=== PATIENT | female | born 1995 | race Two or more races ===

== ENCOUNTER 2023-06-09 08:05 | Observation (INO) | payer BC, OTHER ==
[~2023-06-09] VITALS: Ht 162.6 cm; Wt 99.8 kg
== END 2023-06-09 10:10 | disposition home or self-care (01) ==
LOC: LDRP 08:05
PROVIDERS: ADMIT Obstetrics & Gynecology; ATTEND Obstetrics & Gynecology
DX: O48.0 Post-term pregnancy (principal); Z3A.40 40 weeks gestation of pregnancy
CPT/HCPCS: 59025; 76818; 81002; G0378

== ENCOUNTER 2023-06-11 10:06 | Observation (INO) | payer BC ==
[~2023-06-11] VITALS: Ht 162.6 cm; Wt 99.8 kg
== END 2023-06-11 12:26 | disposition home or self-care (01) ==
LOC: UNDOADMOB 10:06 → LDRP 10:06 → UNDODISOB 12:26
PROVIDERS: ADMIT Obstetrics & Gynecology; ATTEND Obstetrics & Gynecology
DX: O48.0 Post-term pregnancy (principal); Z3A.40 40 weeks gestation of pregnancy
CPT/HCPCS: 59025; 76818; 81002; 94760; G0378

== ENCOUNTER 2023-06-13 09:59 | Observation (INO) | payer BC ==
[2023-06-13] MEDS ORDERED: PREN1TAB71 OR (10:52)
== END 2023-06-13 11:32 | disposition home or self-care (01) ==
LOC: LDRP 09:59 → UNDOADMOB 09:59 → LDRP 10:04 → UNDODISOB 11:32
PROVIDERS: ADMIT Obstetrics & Gynecology; ATTEND Obstetrics & Gynecology
DX: O48.0 Post-term pregnancy (principal); O62.9 Abnormality of forces of labor, unspecified; Z3A.40 40 weeks gestation of pregnancy
CPT/HCPCS: 59025; 76818; 81002; G0378

== ENCOUNTER 2023-06-14 12:45 | Inpatient (IN) | payer BC ==
[~2023-06-14] VITALS: Ht 162.6 cm; Wt 101.6 kg
[~2023-06-14 12:45] MED LIST: PREN1TAB71 OR
[2023-06-14 13:47] LABS: Fern Testing Positive
[2023-06-14] MEDS ORDERED: PROMETHAZINE HCL 25 MG/ML 1ML IV PRN (14:00)
[2023-06-14] MEDS ORDERED: LACTATED RINGER'S 1,000 ML IV SCH (14:00)
[2023-06-14] MEDS ORDERED: LIDOCAINE 2%HCL (LOCAL ANESTH.) INJ 20ML MDV IJ PRN (14:00)
[2023-06-14 14:33] LABS: Basophils # (auto) 0 10 ^3/uL (0-0.2); Basophils % (auto) 0.5 % (0.0-2.0); Eosinophils # (auto) 0.1 10 ^3/uL (0-0.8); Eosinophils % (auto) 0.8 % (0.0-7.0); Hematocrit 40.8 % (36.0-46.0); Hemoglobin 13.7 g/dL (12.2-16.2); Lymphocytes # (auto) 1.4 10 ^3/uL (0.4-5.4); Lymphocytes % (auto) 15.1 % (10.0-50.0); Mean Corpuscular Hemoglobin 28.3 pg (28.0-32.0); Mean Corpuscular Hgb Conc. 33.6 g/dL (32.0-36.0); Mean Corpuscular Volume 84.4 fL (80.0-100.0); Monocytes # (auto) 0.8 10 ^3/uL (0-1.3); Monocytes % (auto) 8.9 % (0.0-12.0); Neutrophils # (auto) 6.8 10 ^3/uL (1.6-8.6); Neutrophils % (auto) 74.7 % (37.0-80.0); Red Blood Cells 4.83 10^6/uL (4.0-5.20); Red Cell Distribution Width 14.1 % (11.8-14.3); White Blood Cell 9.1 10^3/uL (4.4-10.8)
[2023-06-14 14:55] LABS: INR 0.93 (0.9-1.15); Partial Thromboplastin Time 26.2 SEC (24.5-34.5); Prothrombin Time 9.8 sec (9.3-11.8)
[2023-06-14 14:58] LABS: Albumin 3.6 g/dL (3.2-4.8); Alkaline Phosphatase 134 U/L (46-116); Anion Gap 7 (5-15); Aspartate Aminotransferase 8 U/L (13-40); BUN/Creatinine Ratio 11.8 (10.0-20.0); Bilirubin, Total 0.4 mg/dL (0.2-1.0); Blood Urea Nitrogen 8 mg/dL (9-23); Carbon Dioxide 23 mmol/L (20-30); Chloride 106 mmol/L (98-107); Glucose 86 mg/dL (74-106); Potassium 3.9 mmol/L (3.5-5.1); Sodium 136 mmol/L (136-145); Total Protein 6.7 g/dL (5.7-8.2)
[2023-06-14 15:04] LABS: Alanine Aminotransferase < 9 U/L (7-40)
[2023-06-14 15:27] LABS: Urine Bacteria NONE SEEN /hpf (None Seen); Urine Blood Negative /uL (Negative); Urine Clarity Clear (Clear); Urine Color Yellow (Yellow); Urine Mucus FEW (None Seen); Urine Protein, UAD TRACE (Negative); Urine Urobilinogen Normal (Negative); Urine WBC 1 /hpf (0 - 5); Urine pH 7.5 (5.0-8.0)
[2023-06-14] MEDS: miSOPROStol 50 MCG per PRE-CUT 1/2 TAB PO PRN ×2 (15:36→19:57)
[2023-06-14 15:42] LABS: Amphetamine Screen, Urine Neg (NEGATIVE); Barbiturate Scree,Urine Neg (NEGATIVE); Benzodiazephine Screen, Urine Neg (NEGATIVE); Cocaine Screen, Urine Neg (NEGATIVE); Opiate Scree,Urine Neg (NEGATIVE); Phencyclidine Screen, Urine Neg (NEGATIVE)
[2023-06-14 15:43] LABS: Cannabinoid Screen, Urine Neg (NEGATIVE)
[2023-06-14 16:06] LABS: Protein, Urine 24.5 mg/dL (0.0-11.9)
[2023-06-14 16:08] LABS: Creatinine, Urine 125.5 mg/dL (30.0-125.0); Urine Protein/Creatinine Ratio 0.2
[2023-06-14] MEDS ORDERED: LACT. RINGERS/OXYTOCIN 20UNITS 500 ML IV ONE ×2 (16:45→17:15)
[2023-06-14] MEDS ORDERED: ceFAZolin 2 GM/D5W100ml 100 ML IV ONE (19:15)
[2023-06-14] MEDS ORDERED: MORPHINE SULFATE 4 MG/ML SYR/VIAL IM ONE (23:15)
[2023-06-15] MEDS ORDERED: ACETAMINOPHEN 325 MG TAB PO ONE
[2023-06-15] MEDS: ceFAZolin 1GM/50ML 50 ML IV SCH ×3 (03:19→18:57)
[2023-06-15] MEDS ORDERED: fentaNYL CITRATE 100 MCG/2 ML VL IV ONE (06:30)
[2023-06-15] MEDS ORDERED: ePHEDrine SULFATE 50 MG/ML AMP IV ONE (07:00)
[2023-06-15] MEDS ORDERED: NALOXONE HCL 0.4 MG/ML VIAL IV ONE (07:00)
[2023-06-15] MEDS ORDERED: ROPIVACAINE HCL 200 ML EPI SCH (07:00)
[2023-06-15 07:06] LABS: RPR Non Reactive (Non Reactive)
[2023-06-15] MEDS ORDERED: ROPIVACAINE HCL 200 ML ONE (07:12)
[2023-06-15] MEDS ORDERED: TERBUTALINE SULFATE 1 MG/ML 1ML VIAL SC PRN (08:00)
[2023-06-15] MEDS ORDERED: LACT. RINGERS/OXYTOCIN 20UNITS 1,000 ML IV SCH (08:00)
[2023-06-15] MEDS: WITCH HAZEL-GLYCERIN PAD TOP PRN (16:43)
[2023-06-15] MEDS: DERMOPLAST 60ML BOTTLE TOP PRN (16:43)
[2023-06-15] MEDS: PHISODERM TOP SOLN 240ML BTL TOP PRN (16:43)
[2023-06-15] MEDS ORDERED: ONDANSETRON ODT 4 MG TAB PO PRN (18:30)
[2023-06-15] MEDS ORDERED: ACETAMINOPHEN 325 MG TAB PO PRN (18:30)
[2023-06-15] MEDS: IBUPROFEN 600 MG TAB PO PRN (18:57)
[2023-06-15] MEDS ORDERED: DOCUSATE SOD 100 MG CAP PO SCH (22:00)
[2023-06-15 23:00] VITALS: BP 120/79; PULSE 72; RESP 18; TEMP 98.5
[2023-06-16 03:00] VITALS: BP 103/69; PULSE 62; RESP 18; TEMP 98
[2023-06-16] MEDS: ceFAZolin 1GM/50ML 50 ML IV SCH ×2 (03:09→11:22)
[2023-06-16] MEDS: IBUPROFEN 600 MG TAB PO PRN ×2 (03:11→11:23)
[2023-06-16] MEDS: WITCH HAZEL-GLYCERIN PAD TOP PRN (11:24)
[2023-06-16] MEDS: PHISODERM TOP SOLN 240ML BTL TOP PRN (11:24)
[2023-06-16] MEDS: DERMOPLAST 60ML BOTTLE TOP PRN (11:24)
[2023-06-16 19:00] VITALS: BP 117/82; PULSE 80; RESP 18; TEMP 98.6
[2023-06-16] MEDS ORDERED: MEASLES, MUMPS & RUBELLA VAC(MMRII) 0.5ML SC ONE (21:45)
[2023-06-16 22:37] VITALS: BP 110/80; PULSE 77; RESP 16; TEMP 98.6; O2SAT 100
[2023-06-18 21:06] LABS: Treponema pallidum Ab (FTA-Ab) Non Reactive (Non Reactive)
== END 2023-06-16 22:46 | disposition home or self-care (01) | DRG 807 ==
LOC: LDRP 12:45 → UNDOADMOB 12:45 → INTOOBSV 14:00 → OBSVTOIN 14:00 → LDRP 14:04 → OBSVTOIN 14:04 → LDRP 23:27
PROVIDERS: ADMIT Obstetrics & Gynecology; ATTEND Obstetrics & Gynecology
PROC: 10E0XZZ Delivery of Products of Conception, External Approach (ICD-10-PCS; principal; 2023-06-15)
PROC: 0KQM0ZZ Repair Perineum Muscle, Open Approach (ICD-10-PCS; 2023-06-15)
PROC: 3E0DXGC Introduction of Other Therapeutic Substance into Mouth and Pharynx, External Approach (ICD-10-PCS; 2023-06-15)
PROC: 0W8NXZZ Division of Female Perineum, External Approach (ICD-10-PCS; 2023-06-15)
PROC: 3E0R3BZ Introduction of Anesthetic Agent into Spinal Canal, Percutaneous Approach (ICD-10-PCS; 2023-06-15)
PROC: 00HU33Z Insertion of Infusion Device into Spinal Canal, Percutaneous Approach (ICD-10-PCS; 2023-06-15)
PROC: 3E0234Z Introduction of Serum, Toxoid and Vaccine into Muscle, Percutaneous Approach (ICD-10-PCS; 2023-06-16)
DX: O48.0 Post-term pregnancy (principal); Z37.0 Single live birth; Z3A.40 40 weeks gestation of pregnancy; O16.4 Unspecified maternal hypertension, complicating childbirth; O69.81X0 Labor and delivery complicated by cord around neck, without compression, not applicable or unspecified; O70.1 Second degree perineal laceration during delivery; Z23 Encounter for immunization
CPT/HCPCS: 36415; 59025; 59409; 62282; 80053; 80307; 81001; 81002; 82570; 84112; 84156; 84550; 85025; 85610; 85730; 86592; 86850; 86900; 86901; 94760; 94762; 96360; 96361; 96365; 96366; 96372; 96374; G0378; J0690; J2590; Q0162